=== PATIENT | male | born 1980 | race Caucasian/White ===

== ENCOUNTER 2019-06-22 12:25 | Outpatient (CLI) | payer MEDICARE ==
--- NOTE | 2019-06-22 13:46 | MRI ---
MRI LUMBAR SPINE WITHOUT CONTRAST: INDICATIONS: Lumbar radicular pain. COMPARISON: None. FINDINGS: There is a 1.6 cm cyst involving the superior pole of the right kidney. Bone marrow signal intensity appears within normal limits. There is a 4.9 mm T1 hyperintense focus involving the conus terminus that demonstrates some fat satur ation loss of signal on the T2 weighted fat-sat series. The lesion measures 4.9 mm and is suspicious for an intradural lipoma. There is no evidence of a very prominent cord like phylum terminale. Spinal alignment is preserved. At L5-S1 there is moderate right and mild left facet joint degenerative change with a broad-based dis k bulge inducing mild bilateral neural foraminal narrowing without definite nerve root impingement. At L4-L5 there is a broad-based bulge with facet hypertrophy inducing mild neural foraminal encroachm ent without impingement. At L3-L4 there is a mild broad-based bulge with facet osteoarthrosis but no appreciable central canal or neural foraminal narrowing. At L2-L3 there is a broad-based bulge with no appreciable central canal or neural foraminal narrowing . At L1-L2 there is a mild broad-based bulge but no appreciable central canal or neural foraminal narro wing. At T12-L1 there is no appreciable central canal or neural foraminal narrowing. IMPRESSION: 1. Mild multilevel spondylosis of the lumbar spine with mild neural foraminal narrowing at L4-L5 and L5-S1 without appreciable nerve root impingement. 2. 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 3. Small right renal cyst. POS: [facility]
== END 2019-06-22 12:26 | disposition home or self-care (01) ==
LOC: SCSMRI 12:25
PROVIDERS: ATTEND Nurse Practitioner Family
DX: M47.26 Other spondylosis with radiculopathy, lumbar region (principal); M47.27 Other spondylosis with radiculopathy, lumbosacral region; N28.1 Cyst of kidney, acquired
CPT/HCPCS: 72148

== ENCOUNTER 2020-12-17 15:44 | Outpatient (CLI) | payer MEDICARE | END 2020-12-17 15:45 | disposition home or self-care (01) | LOC: BICRAD 15:44 | PROVIDERS: ATTEND Nurse Practitioner Family | DX: M25.552 Pain in left hip (principal) ==

== ENCOUNTER 2025-02-06 15:16 | Outpatient (CLI) | payer MEDICARE | END 2025-02-06 15:17 | disposition home or self-care (01) | LOC: SCSMRI 15:16 | PROVIDERS: ATTEND Orthopaedic Surgery | DX: S46.012A Strain of muscle(s) and tendon(s) of the rotator cuff of left shoulder, initial encounter (principal); M19.012 Primary osteoarthritis, left shoulder ==